=== PATIENT | male | born 1945 | race Caucasian/White ===

== ENCOUNTER 2016-09-11 12:34 | Emergency (ER) | payer MEDICARE, OTHER ==
[2016-09-11] MEDS ORDERED: Aspirin 81 MG Tab.Chew PO ONE (12:43)
--- NOTE | 2016-09-11 12:49 | EDM.PDOC ---
ED HPI GENERAL MEDICAL PROBLEM - General Chief Complaint: General Stated Complaint: chest pain 1 out of 10 worse with activity a bout patient states that about 2 days ago he treated a car and hurt himself being the call to Time Seen by Provider: 09/11/16 12:40 Source of Information: Reports: Patient, RN Notes Reviewed History Limitations: Reports: No Limitations - History of Present Illness INITIAL COMMENTS - FREE TEXT/NARRATIVE: Patient 71-year-old male who presented in the ER with chest pain worse with activity came in for evaluation denies loss of consciousness or pain radiating to neck or abdomen Onset: Today Onset Date: 09/11/16 Onset Time: 02:00 Duration: Hour(s):, Waxing/Waning Location: Reports: Chest Quality: Reports: Pressure, Throbbing Severity: Moderate Improves with: Reports: Rest Worsens with: Reports: Movement Context: Reports: Lifting Associated Symptoms: Reports: Chest Pain Chest Pain Score (Numeric/FACES): 1 - Related Data Allergies Allergy/AdvReac Type Severity Reaction Status Date / Time No Known Allergies Allergy Verified 09/11/16 12:37 Home Meds: Home Meds . [No Known Home Meds] 09/11/16 [History] Social & Family History - Tobacco Use Second Hand Smoke Exposure: Yes - Alcohol Use Days Per Week of Alcohol Use: 1 Number of Drinks Per Day: 1 Total Drinks Per Week: 1 - Recreational Drug Use Recreational Drug Use: No Recreational Drug Last Use: 2-4 pops per day - Living Situation & Occupation Living situation: Reports: Occupation: Retired ED ROS GENERAL - Review of Systems Review Of Systems: See Below Constitutional: Reports: No Symptoms HEENT: Reports: No Symptoms Respiratory: Reports: No Symptoms Cardiovascular: Reports: Chest Pain Endocrine: Reports: No Symptoms GI/Abdominal: Reports: No Symptoms : Reports: No Symptoms Musculoskeletal: Reports: No Symptoms Skin: Reports: No Symptoms Neurological: Reports: No Symptoms Psychiatric: Reports: No Symptoms ED EXAM, GENERAL - Physical Exam Exam: See Below Exam Limited By: No Limitations General Appearance: Alert, WD/WN, No Apparent Distress Ears: Normal External Exam, Normal Canal, Hearing Grossly Normal, Normal TMs Nose: Normal Inspection, Normal Mucosa, No Blood Throat/Mouth: Normal Inspection, Normal Lips, Normal Teeth, Normal Gums, Normal Oropharynx, Normal Voice, No Airway Compromise Head: Atraumatic, Normocephalic Neck: Normal Inspection, Supple, Non-Tender, Full Range of Motion Respiratory/Chest: No Respiratory Distress, Lungs Clear, Normal Breath Sounds, No Accessory Muscle Use, Chest Non-Tender Cardiovascular: Normal Peripheral Pulses, Regular Rate, Rhythm, No Edema, No Gallop, No JVD, No Murmur, No Rub GI/Abdominal: Normal Bowel Sounds, Soft, Non-Tender, No Organomegaly, No Distention, No Abnormal Bruit, No Mass (Male) Exam: Deferred Rectal (Males) Exam: Deferred Back Exam: Normal Inspection Extremities: Normal Inspection, Normal Range of Motion, Non-Tender, Normal Capillary Refill, No Pedal Edema Neurological: Alert, Oriented, CN II-XII Intact, Normal Cognition, Normal Gait, Normal Reflexes, No Motor/Sensory Deficits Psychiatric: Normal Affect, Normal Mood Skin Exam: Warm, Dry, Intact, Normal Color, No Rash Lymphatic: No Adenopathy Course - Vital Signs Last Recorded V/S: Last Vital Signs Temp 97.9 F 09/11/16 13:16 Pulse 86 09/11/16 13:16 Resp 20 09/11/16 13:16 BP 139/89 09/11/16 13:16 Pulse Ox 98 09/11/16 13:16 - Orders/Labs/Meds Orders: Active Orders 24 hr Category Date Time Status EKG Documentation Completion [RC] ASDIRECTED Care 09/11/16 12:44 Active CXR [Chest 2V] [CR] Stat Exams 09/11/16 12:58 Ordered BASIC METABOLIC PANEL,BMP [CHEM] Stat Lab 09/11/16 12:58 Ordered TROPONIN I [CHEM] Stat Lab 09/11/16 12:58 Ordered Sodium Chloride 0.9% [Saline Flush] Med 09/11/16 12:58 Active 10 ml FLUSH ASDIRECTED PRN Saline Lock Insert [OM.PC] Stat Oth 09/11/16 12:59 Ordered Medication Orders Sodium Chloride (Saline Flush) 10 ml FLUSH ASDIRECTED PRN PRN Reason: Keep Vein Open Labs: Laboratory Tests 09/11/16 Range/Units 13:00 WBC 9.6 (4.0-10.2) K/uL RBC 5.09 (4.33-5.41) M/uL Hgb 16.2 (13.1-16.8) g/dL Hct 45.8 (39.0-49.0) % MCV 90.0 (84.0-98.0) fL MCH 31.8 (28.2-33.3) pg MCHC 35.4 (31.7-36.0) g/dL RDW 13.1 (11.2-14.1) % Plt Count 193 (150-350) K/uL Neut % (Auto) 76.6 (45.0-80.0) % Lymph % (Auto) 13.9 (10.0-50.0) % [place] % (Auto) 8.0 (2.0-14.0) % Eos % (Auto) 1.1 (0.0-5.0) % Baso % (Auto) 0.4 (0.0-2.0) % Neut # (Auto) 7.37 H (1.40-7.00) K/uL Lymph # (Auto) 1.34 (0.50-3.50) K/uL [place] # (Auto) 0.77 (0.00-1.00) K/uL Eos # (Auto) 0.11 (0.00-0.50) K/uL Baso # (Auto) 0.04 (0.00-0.20) K/uL Meds: Medications Generic Name Dose Route Start Last Admin Trade Name Freq PRN Reason Stop Dose Admin Sodium Chloride 10 ml 09/11/16 12:58 Saline Flush FLUSH ASDIRECTED PRN Keep Vein Open Discontinued Medications Generic Name Dose Route Start Last Admin Trade Name Freq PRN Reason Stop Dose Admin Aspirin 324 mg 09/11/16 12:43 09/11/16 12:53 Aspirin PO 09/11/16 12:44 324 mg ONETIME ONE Administration Departure - Departure Time of Disposition: 13:37 Disposition: Home, Self-Care 01 Clinical Impression: Chest pain, non-cardiac Chest pain Qualifiers: Chest pain type: unspecified Qualified Code(s): R07.9 - Chest pain, unspecified - Discharge Information Referrals: Joanne Roper NP [Primary Care Provider] - Forms: ED Department Discharge - Problem List Review Problem List Initiated/Reviewed/Updated: Yes - My Orders Last 24 Hours: My Active Orders 09/11/16 12:44 EKG Documentation Completion [RC] ASDIRECTED 09/11/16 12:58 CXR [Chest 2V] [CR] Stat BASIC METABOLIC PANEL,BMP [CHEM] Stat TROPONIN I [CHEM] Stat Sodium Chloride 0.9% [Saline Flush] 10 ml FLUSH ASDIRECTED PRN 09/11/16 12:59 Saline Lock Insert [OM.PC] Stat - Assessment/Plan Last 24 Hours: My Active Orders 09/11/16 12:44 EKG Documentation Completion [RC] ASDIRECTED 09/11/16 12:58 CXR [Chest 2V] [CR] Stat BASIC METABOLIC PANEL,BMP [CHEM] Stat TROPONIN I [CHEM] Stat Sodium Chloride 0.9% [Saline Flush] 10 ml FLUSH ASDIRECTED PRN 09/11/16 12:59 Saline Lock Insert [OM.PC] Stat Assessment:: Chest pain unknown etiology noncardiac Plan: Patient was seen in emergency room aspirin given EKG obtained revealed sinus rhythm with first-degree heart block and poor progression of R waves in 2,[address] elevations or depression workup troponins negative from start of symptoms Over 10 hours from start of symptoms at this time patient will be released to go home he is to return to emergency room if symptoms return or worsen discussed admission for observation but patient prefers to go home at this time I feel that enough time has passed since onset of symptoms no signs of any heart attacks
[2016-09-11] MEDS ORDERED: Sodium Chloride 0.9% 10 ML Syringe FLUSH PRN (12:58)
[2016-09-11 13:24] LABS: CHLORIDE,CL 105 mmol/L (98-107); SODIUM,NA 140 mmol/L (136-145)
[2016-09-11 13:33] VITALS: BP 134/94
== END 2016-09-11 13:50 | disposition home or self-care (01) ==
LOC: LL.ED 12:34
DX: R07.89 Other chest pain (principal)
CPT/HCPCS: 36415; 71020; 80048; 84484; 85025; 93005; 99285; A9270; 99284

== ENCOUNTER 2024-07-30 19:00 | Observation (INO) | payer MEDICARE, OTHER ==
[2024-07-30] MEDS ORDERED: Iopamidol 612 MG/ML 100 ML Bottle IVPUSH ONE (19:30)
[2024-07-30] MEDS ORDERED: Naloxone 0.4 MG/ML SDV IVPUSH PRN (19:49)
[2024-07-30 19:50] LABS: BASOPHILS ABSOLUTE AUTO 0.03 K/uL (0.00-0.20); BASOPHILS PERCENT AUTO 0.3 % (0.0-2.0); EOSINOPHILS ABSOLUTE AUTO 0.01 K/uL (0.00-0.50); EOSINOPHILS PERCENT AUTO 0.1 % (0.0-5.0); IMMATURE GRAN ABSOLUTE AUTO 0.01 10^3/uL (0.00-0.04); IMMATURE GRAN PERCENT AUTO 0.1 % (0.0-0.4); LYMPHOCYTES ABSOLUTE AUTO 0.81 K/uL (0.50-3.50); LYMPHOCYTES PERCENT AUTO 7.9 % (10.0-50.0); MEAN CORPUSCULAR HEMOGLOBIN 31.7 pg (28.2-33.3); MEAN CORPUSCULAR HGB CONC 34.1 g/dL (31.7-36.0); MONOCYTES ABSOLUTE AUTO 0.36 K/uL (0.00-1.00); MONOCYTES PERCENT AUTO 3.5 % (2.0-14.0); NEUTROPHILS ABSOLUTE AUTO 8.98 K/uL (1.40-7.00); NEUTROPHILS PERCENT AUTO 88.1 % (45.0-80.0); PLATELET COUNT,PLT 152 K/uL (150-350); RED BLOOD CELL COUNT 4.73 M/uL (4.33-5.41); RED CELL DISTRIBUTION WIDTH 12.4 % (11.2-14.1); WHITE BLOOD CELL COUNT,WBC 10.2 K/uL (4.0-10.2)
[2024-07-30] MEDS: Ondansetron 4 MG/2 ML SDV IVPUSH ONE (19:57)
[2024-07-30] MEDS: fentaNYL 50 MCG/ML SDV IVPUSH ONE ×2 (19:58→20:53)
[2024-07-30] MEDS: Sodium Chloride 0.9% 10 ML Syringe FLUSH PRN (20:01)
[2024-07-30 20:11] LABS: ALANINE AMINOTRANSFERASE,ALT 44 U/L (12-78); ALBUMIN 3.7 g/dL (3.4-5.0); ALKALINE PHOSPHATASE 110 IU/L (46-116); ANION GAP 5.2 meq/L (7-15); ASPARTATE AMNIOTRANSFERASE,AST 58 U/L (15-37); BILIRUBIN TOTAL 1.2 mg/dL (0.2-1.0); BLOOD UREA NITROGEN,BUN 15 mg/dL (7-18); CALCIUM 8.7 mg/dL (8.5-10.1); CARBON DIOXIDE,CO2 30.8 mmol/L (21.0-32.0); CHLORIDE,CL 106 mmol/L (98-107); CREATININE 0.94 mg/dL (0.51-1.17); GLUCOSE RANDOM 114 mg/dL (70-99); POTASSIUM,K 3.6 mmol/L (3.5-5.1); SODIUM,NA 142 mmol/L (136-145)
[2024-07-30 20:13] LABS: ESTIMATED GFR 82 mL/min (>=60)
[2024-07-30] MEDS: Iopamidol 612 MG/ML 100 ML Bottle ONE (20:15)
[2024-07-30] MEDS ORDERED: Ketorolac 30 MG/ML SDV IVPUSH PRN (22:17)
[2024-07-30] MEDS ORDERED: Acetaminophen 325 MG Tab PO PRN (22:17)
[2024-07-30] MEDS: Morphine 2 MG/ML SYRINGE IVPUSH PRN (22:52)
[2024-07-31] MEDS ORDERED: Ondansetron 4 MG Tab.DIS PO PRN
[2024-07-31] MEDS: Carbidopa/Levodopa 25-100 MG Tab PO SCH (07:46)
[2024-07-31 07:48] VITALS: BP 169/75; PULSE 67
[2024-07-31 08:14] LABS: BASOPHILS ABSOLUTE AUTO 0.01 K/uL (0.00-0.20); BASOPHILS PERCENT AUTO 0.1 % (0.0-2.0); EOSINOPHILS ABSOLUTE AUTO 0.01 K/uL (0.00-0.50); EOSINOPHILS PERCENT AUTO 0.1 % (0.0-5.0); HEMATOCRIT 47.6 % (39.0-49.0); HEMOGLOBIN 16.3 g/dL (13.1-16.8); IMMATURE GRAN ABSOLUTE AUTO 0.02 10^3/uL (0.00-0.04); IMMATURE GRAN PERCENT AUTO 0.2 % (0.0-0.4); LYMPHOCYTES ABSOLUTE AUTO 1.07 K/uL (0.50-3.50); LYMPHOCYTES PERCENT AUTO 8.8 % (10.0-50.0); MEAN CORPUSCULAR HEMOGLOBIN 31.5 pg (28.2-33.3); MEAN CORPUSCULAR HGB CONC 34.2 g/dL (31.7-36.0); MEAN CORPUSCULAR VOLUME 92.1 fL (84.0-98.0); MONOCYTES ABSOLUTE AUTO 0.67 K/uL (0.00-1.00); MONOCYTES PERCENT AUTO 5.5 % (2.0-14.0); NEUTROPHILS ABSOLUTE AUTO 10.39 K/uL (1.40-7.00); NEUTROPHILS PERCENT AUTO 85.3 % (45.0-80.0); PLATELET COUNT,PLT 182 K/uL (150-350); RED BLOOD CELL COUNT 5.17 M/uL (4.33-5.41); RED CELL DISTRIBUTION WIDTH 12.4 % (11.2-14.1); WHITE BLOOD CELL COUNT,WBC 12.2 K/uL (4.0-10.2)
[2024-07-31 08:35] LABS: ANION GAP 4.2 meq/L (7-15); BILIRUBIN TOTAL 1.5 mg/dL (0.2-1.0); CALCIUM 9.1 mg/dL (8.5-10.1); CARBON DIOXIDE,CO2 31.8 mmol/L (21.0-32.0); CREATININE 1.03 mg/dL (0.51-1.17); EST CRCL DRUG DOSING (CG) 59.06 mL/min; POTASSIUM,K 3.8 mmol/L (3.5-5.1); PROTEIN TOTAL,TP 7.9 g/dL (6.4-8.2)
[2024-07-31 08:49] LABS: INR 1.2 (0.9-1.1); PROTHROMBIN TIME 12.1 SEC (9.0-11.1)
== END 2024-07-31 10:29 | disposition home or self-care (01) ==
LOC: LL.ED 19:00 → LL.MS 22:42
PROVIDERS: ADMIT Physician Assistant; ATTEND Physician Assistant
DX: K91.840 Postprocedural hemorrhage of a digestive system organ or structure following a digestive system procedure (principal); G20.A1 Parkinson's disease without dyskinesia, without mention of fluctuations
CPT/HCPCS: 36415; 74177; 80053; 85025; 85610; 96374; 96375; 96376; 99223; 99239; 99283-25; A9270-GY; G0378; J2270; J2405; J3010; J3360; Q9967